=== PATIENT | male | born 1985 | race American Indian/Alaskan Native ===

== ENCOUNTER 2018-04-25 14:19 | Emergency (ER) | payer MEDICAID ==
[2018-04-25] MEDS ORDERED: BOOSTRIX IM ONE (16:10)
[2018-04-25] MEDS ORDERED: ULTRAM PO ONE (16:10)
--- NOTE | 2018-04-25 16:13 | Emergency Department Report ---
ED Laceration HPI - HPI Chief Complaint: Wound/Laceration Stated Complaint: CUT RT FINGER Time Seen by Provider: 04/25/18 15:58 Occurred When: Today Location: Upper Extremity (distal third digit) Severity: moderate Tetanus Status: Not up to Date Laceration Symptoms: Yes Pain, No Foreign Body Sensation, No Numbness, No Weakness Other History: This is a 32-year-old -[place] male accompanied by a brother with a laceration to the third right finger. Patient states he was cutting grass at his neighbor's house today around 1:30 and cut finger on a long morbidly accidentally. He noticed a large amount of bleeding and deep to distal third digit. He wash wound with soap and water and applied a Band-Aid dressing. His brother gave him ibuprofen to take for pain. Patient is unsure of the last time he received a tetanus vaccine. Denies numbness or tingling, swelling, change in range of motion, loss of consciousness, and chest pain ED Review of Systems ROS: Stated complaint: CUT RT FINGER Other details as noted in HPI Constitutional: denies: chills, fever Respiratory: denies: cough, shortness of breath, wheezing Cardiovascular: denies: chest pain, palpitations Gastrointestinal: denies: abdominal pain, nausea, vomiting, diarrhea Skin: lesions (laceration to third distal digit). denies: rash, change in color , change in hair/nails, pruritus Neurological: denies: headache, weakness, paresthesias Psychiatric: denies: anxiety, depression ED Past Medical Hx - Past Medical History Previous Medical History?: No Additional medical history: Mentally Challenged - Surgical History Past Surgical History?: No - Social History Smoking Status: Never Smoker Substance Use Type: None - Medications Home Medications: Home Medications Medication Instructions Recorded Confirmed Last Taken Type Acetaminophen/Codeine [Tylenol #3] 1 tab PO Q6H PRN #30 tab 03/20/15 Unknown Rx Cyclobenzaprine [Flexeril 10mg] 10 mg PO TID PRN #30 tablet 03/20/15 Unknown Rx Ibuprofen [Motrin] 600 mg PO Q8H PRN #40 tablet 03/20/15 Unknown Rx Ibuprofen [Motrin 800 MG tab] 800 mg PO Q8HR PRN #15 tablet 04/25/18 Unknown Rx Sulfamethoxazole/Trimethoprim 1 each PO BID 7 Days #14 tablet 04/25/18 Unknown Rx [Bactrim DS TAB] Laceration Physical Exam - Exam General: Vital signs noted. No distress. Alert and acting appropriately. Wound Length (cm): 1 Laceration Location: Upper Extremity (right hand third phalanx) Full Body Front + Back: 1 - 1 cm laceration to 3rd right distal phalanx, into muscle, active bleeding, FROM, no swelling or surrounding cellulitis, no visual tendon or vessel, not impacting nail Laceration Exam: Yes Normal Distal CMS, No Foreign Body, No Exposed Tendon, Vessel, or Nerve, No Tendon Injury ED Course Vital Signs 04/25/18 14:28 Temperature 98.1 F Pulse Rate 66 Respiratory 17 Rate Blood Pressure 140/92 O2 Sat by Pulse 99 Oximetry - Laceration /Wound Repair Right Distal Finger Wound Location: upper extremity (right 3rd distal phalanx) Wound Length (cm): 1 Wound's Depth, Shape: into muscle, linear Wound Explored: no foreign body removed Irrigated w/ Saline (ccs): 1 Betadine Prep?: Yes Anesthesia: 1% Lidocaine Volume Anesthetic (ccs): 1 Wound Repaired With: sutures Suture Size/Type: 5:0 Number of Sutures: 4 Layer Closure?: No Sterile Dressing Applied?: Yes ED Medical Decision Making - Radiology Data Radiology results: report reviewed EXAM: XR FINGER(S) 2+V RT HISTORY: laceration right 3rd digit TECHNIQUE: PRIORS: None. FINDINGS: No fracture is identified. The joint spaces are within normal limits. No focal bony lesion identified. No radiopaque foreign body seen. Noted is dressing and soft tissue swelling distal aspect of the 3rd digit. IMPRESSION: Soft tissue laceration 3rd digit No fracture or radiopaque foreign body identified - Medical Decision Making This is a 32 y.o. male presents with right third digit laceration from a lawn more this afternoon. Patient examined by me. X-ray of right hand obtained and dictated by radiologist. Soft tissue laceration 3rd digit. No fracture or radiopaque foreign body identified. Patient is non-toxic appearing and stable. Patient given tramadol 50 mg by mouth and tetanus vaccine once while in the ER. Laceration closed with 4 sutures, review suture note. Discharged home for outpatient treatment with bactrim. Discussed ER care plan with patient and sibling. Patient agreed with plan. She was instructed to have sutures removed in 7-10 days. F/U with PCP 2-3 days. Critical care attestation.: If time is entered above; I have spent that time in minutes in the direct care of this critically ill patient, excluding procedure time. ED Disposition Clinical Impression: Laceration of finger of right hand without damage to nail Qualifiers: Encounter type: initial encounter Finger: middle finger Foreign body presence: without foreign body Qualified Code(s): S61.212A - Laceration without foreign body of right middle finger without damage to nail, initial encounter Disposition: TO HOME OR SELFCARE Is pt being admited?: No Does the pt Need Aspirin: No Condition: Stable Instructions: Suture Care (ED), Laceration (ED) Additional Instructions: Take antibiotics as prescribed for the full course. Keep wound dry and clean for 48 hours. Avoid putting to much tension on wound site. Prop arm up on pillows to decrease swelling. Follow up with Primary Care Provider in 2-3 days. Have sutures removed in 7-10 days by primary care provider or in ER. Return to ER if red, swollen, foul discharge, or fever. Prescriptions: Ibuprofen [Motrin 800 MG tab] 800 mg PO Q8HR PRN #15 tablet PRN Reason: Pain , Severe (7-10) Sulfamethoxazole/Trimethoprim [Bactrim DS TAB] 1 each PO BID 7 Days #14 tablet Referrals: [facility] [Outside] - 3-5 Days JAZMIN THAPA MD [Staff Physician] - 3-5 Days Time of Disposition: 18:12 Print Language: QATARI ED Upper Extremity Injury HPI - General Chief Complaint: Wound/Laceration Stated Complaint: CUT RT FINGER Time Seen by Provider: 04/25/18 15:58 - History of Present Illness Allergies/Adverse Reactions: Allergies No Known Allergies Allergy (Verified 03/20/15 00:23) Home Medications: Ambulatory Orders Acetaminophen/Codeine [Tylenol #3] 1 tab PO Q6H PRN #30 tab 03/20/15 Cyclobenzaprine [Flexeril 10mg] 10 mg PO TID PRN #30 tablet 03/20/15 Ibuprofen [Motrin] 600 mg PO Q8H PRN #40 tablet 03/20/15 Ibuprofen [Motrin 800 MG tab] 800 mg PO Q8HR PRN #15 tablet 04/25/18 Sulfamethoxazole/Trimethoprim [Bactrim DS TAB] 1 each PO BID 7 Days #14 tablet 04/25/18 ED Extremity Problem HPI - General Chief complaint: Wound/Laceration Stated complaint: CUT RT FINGER Time Seen by Provider: 04/25/18 15:58 Source: patient Mode of arrival: Ambulatory Limitations: No Limitations - Related Data Previous Rx's Medication Instructions Recorded Last Taken Type Acetaminophen/Codeine [Tylenol #3] 1 tab PO Q6H PRN #30 tab 03/20/15 Unknown Rx Cyclobenzaprine [Flexeril 10mg] 10 mg PO TID PRN #30 tablet 03/20/15 Unknown Rx Ibuprofen [Motrin] 600 mg PO Q8H PRN #40 tablet 03/20/15 Unknown Rx Ibuprofen [Motrin 800 MG tab] 800 mg PO Q8HR PRN #15 tablet 04/25/18 Unknown Rx Sulfamethoxazole/Trimethoprim 1 each PO BID 7 Days #14 tablet 04/25/18 Unknown Rx [Bactrim DS TAB] Allergies Allergy/AdvReac Type Severity Reaction Status Date / Time No Known Allergies Allergy Verified 03/20/15 00:23
--- NOTE | 2018-04-25 17:02 | XRay Report ---
FINAL REPORT EXAM: XR FINGER(S) 2+V RT HISTORY: laceration right 3rd digit TECHNIQUE: PRIORS: None. FINDINGS: No fracture is identified. The joint spaces are within normal limits. No focal bony lesion identified. No radiopaque foreign body seen. Noted is dressing and soft tissue swelling distal aspect of the 3rd digit. IMPRESSION: Soft tissue laceration 3rd digit No fracture or radiopaque foreign body identified
[2018-04-25 18:28] VITALS: BP 118/72
== END 2018-04-25 18:27 | disposition home or self-care (01) ==
LOC: ED 14:19
DX: S61.212A Laceration without foreign body of right middle finger without damage to nail, initial encounter (principal); W45.8XXA Other foreign body or object entering through skin, initial encounter; Y93.89 Activity, other specified; Y99.8 Other external cause status; Y92.89 Other specified places as the place of occurrence of the external cause
CPT/HCPCS: 90471; 90715